=== PATIENT | male | born 1960 | race Caucasian/White ===

== ENCOUNTER 2017-04-23 18:57 | Inpatient (IN) | payer MEDICAID ==
[~2017-04-23] VITALS: Ht 160 cm; Wt 65.8 kg
[2017-04-23 19:06] VITALS: BP 129/83
--- NOTE | 2017-04-23 19:20 | NUR ---
LABS ORDERED. URINE COLLECTED. EKG DONE. PT TRANSPORTED TO XRAY VIA W/C IN STABLE CONDITION.
--- NOTE | 2017-04-23 19:33 | NUR ---
PT RETURNED TO LOBBY AFTER XRAY VIA W/C IN STABLE CONDITION.
[2017-04-23 19:58] LABS: BARBITURATE, URINE NEG. ng/ml (NEG <=200); BENZODIAZEPINE, URINE NEG. ng/mL (NEG <=200); CANNABINOID, URINE NEG. ng/mL (NEG <=50); COCAINE, URINE NEG. ng/mL (NEG <=300); OPIATE, URINE NEG. ng/mL (NEG <=2000); PHENCYCLIDINE SCREEN,URINE NEG. ng/mL (NEG <=25)
--- NOTE | 2017-04-23 20:00 | NUR ---
Pt brought in by son for chest pain. Pt statse pressure chest pain 4/10 non radiating. 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 VSS. 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 Last alcoholic drink was this evening before Pt came to ED. Pt son states that Pt is suffering from peranoid delusions more frequently. ERMD aware. Continue to monitor.
[2017-04-23 20:05] LABS: ANION GAP 20.9 (8-16); CARBON DIOXIDE 20.1 mmol/L (21-32); CREATININE 0.9 mg/dL (0.7-1.3)
[2017-04-23 20:12] LABS: ALBUMIN 3.9 g/dL (3.4-5.0)
[2017-04-23 20:26] LABS: BILIRUBIN,URINE NEGATIVE (NEGATIVE); BLOOD, URINE TRACE-L (NEGATIVE); COLOR,URINE YELLOW (YELLOW); LEUKOCYTE ESTERASE ,URINE TRACE (NEGATIVE); NITRITE, URINE NEGATIVE (NEGATIVE); PH,URINE 5.5 (5.0-9.0); UGLUCOSE NEGATIVE (NEGATIVE)
[2017-04-23 20:28] LABS: APPEARANCE,URINE HAZY (CLEAR)
--- NOTE | 2017-04-23 20:30 | NUR ---
RECEIVED FROM ER PER ROGER AWAKE AND ALERT. NO SOB. PT. ACCOMPANIED BY SON. PT. DX. OF CHEST PAIN WITH METH USE AND ALCOHOL INTAKE. PARANOID DEMEANOR AT THIS TIME. STATING THAT A PERSON IS RUNNING AFTER HIM. PT. INSISTED TO HAVE WINDOW CURTAIN CLOSED THOROUGHLY BECAUSE SOMEONE IS AFTER HIM. CALL LIGHT WITH IN REACH. WOLOF SPEAKING . SON ABLE TO ANSWER ALL PERTINENT ADMISSION QUESTIONS FOR FATHER WHO SPEAKS VERY WELL PANAMANIAN. PT. REFUSED TO BE TOUCHED AT THIS TIME AND REFUSED TO BE TALKED TO .
[2017-04-23 21:00] LABS: RBC,URINE 0-5 (RARE) /HPF (0-5); WBC,URINE 0-5 (RARE) /HPF (0-5)
[2017-04-23] MEDS ORDERED: MULTIVITAMIN-12 10 ML, THIAMINE 100 MG, MAGNESIUM SULFATE 50% 2,000 MG, FOLIC ACID 5 MG... IV ONE ×5 (21:30)
[2017-04-23] MEDS ORDERED: MAGNESIUM SULFATE 50% 1000 MG/2 ML VIAL IV ONE ×2 (21:40→21:45)
[2017-04-23] MEDS ORDERED: THIAMINE 200 MG/2 ML VIAL ONE (21:45)
[2017-04-23] MEDS ORDERED: MULTIVITAMIN-12 10 ML VIAL IV ONE (21:45)
[2017-04-23] MEDS ORDERED: FOLIC ACID 5 MG/ML SYR ONE (21:45)
[2017-04-23] MEDS ORDERED: HYDROcodone/APAP 7.5/325 MG 1 TAB PO PRN (21:55)
[2017-04-23] MEDS ORDERED: NACL 0.9% 1,000 ML IV SCH (21:55)
[2017-04-23] MEDS ORDERED: ACETAMINOPHEN 325 MG TAB PO PRN (21:55)
[2017-04-23] MEDS ORDERED: ONDANSETRON 4 MG/2 ML VIAL IVP PRN (21:55)
--- NOTE | 2017-04-23 22:16 | NUR ---
Pt in bed and resting. Pain remains the same. Pt vss. Awaiting tansfer.
[2017-04-23 22:29] LABS: BASOPHILS # (AUTO) 0.1 K/uL (0.00-0.22); BASOPHILS % (AUTO) 1.5 % (0.0-2.0); EOSINOPHILS # (AUTO) 0.1 K/uL (0-0.4); HEMATOCRIT 38.9 % (36-52); HEMOGLOBIN 13.2 g/dL (12.0-18.0); LYMPHOCYTES % (AUTO) 11.4 % (20.5-51.1); MEAN CORPUSCULAR HEMOGLOBIN 33 pg (27-31); MEAN CORPUSCULAR HGB CONC 34 g/dL (33-37); MEAN CORPUSCULAR VOLUME 97 fL (80-94); MONOCYTES # (AUTO) 0.7 K/uL (0.8-1.0); MONOCYTES % (AUTO) 7.6 % (1.7-9.3); NEUTROPHILS # (AUTO) 6.9 K/uL (1.8-7.7); NEUTROPHILS % (AUTO) 78.5 % (42.2-75.2); PLATELET COUNT (AUTO) 180 K/uL (140-450); RED CELL DISTRIBUTION WIDTH 12.6 % (11.6-13.7); WHITE BLOOD COUNT (AUTO) 8.8 K/uL (4.8-10.8)
--- NOTE | 2017-04-23 22:30 | NUR ---
Chirag Law RN left to floor, admitt Pt to room 111B for observation. Family aware and son at pt's side.
--- NOTE | 2017-04-23 22:35 | NUR ---
Report given to workgroup leader. Pt care transfered.
[2017-04-23 22:45] LABS: PROTHROMBIN TIME 10.9 secs (10.8-13.4)
[2017-04-23 22:52] LABS: CHOL/HDL RATIO 2.8 (1-4.5); FREE T4 (FREE THYROXINE) 1.15 ng/dL (0.76-1.46); MAGNESIUM 2.2 mg/dL (1.8-2.4); PHOSPHORUS 3.2 mg/dL (2.5-4.9); THYROID STIMULATING HORMONE 1.5 uIU/mL (0.34-3.74)
[2017-04-23] MEDS ORDERED: LORazepam 2 MG/ML VIAL IVP PRN (23:15)
[2017-04-23] MEDS ORDERED: NITROGLYCERIN 0.4 MG TAB SL PRN (23:15)
[2017-04-23 23:30] VITALS: BP 149/88
--- NOTE | 2017-04-24 01:04 | NUR ---
ATIVAN 2 MG IVP ORDERED MEDICATED RT PT. VERY RESTLESS. PT. SEEN TRYING TO CLIMB THE WALL AND STATED THAT SOMEBODY IN THE OTHER BED IS TRYING TO GET HIM. BED ALARM ON.
[2017-04-24 04:21] VITALS: BP 124/68
[2017-04-24] MEDS: LORazepam 1 MG TAB PO SCH ×2 (05:12→12:33)
--- NOTE | 2017-04-24 05:16 | NUR ---
BEEN SLEEPING WELL POST ATIVAN IVP MEDICATION GIVEN EARLIER. PT. WAKES UP WHEN AWAKENED AT THIS TIME. ABLE TO SWALLOW PILL WELL. WENT BACK TO SLEEP.
--- NOTE | 2017-04-24 07:30 | NUR ---
RECEIVED PT REPORT FROM CAPITAL EQUIPMENT SPECIALIST RN. PT IS SLEEPING, AROUSED TO NAME, ORIENTED X2 TO NAME AND PLACE. NO S/S OF ACUTE DISTRESS AT THIS TIME. DENIES PAIN AT THIS TIME. VITAL SIGNS TAKEN AND DOCUMENTED. SAFETY PRECAUTIONS MET. WILL CONTINUE TO MONITOR.
[2017-04-24 08:00] VITALS: BP 117/68
[2017-04-24] MEDS ORDERED: NITROFURANTOIN 100 MG CAP PO SCH (08:00)
--- NOTE | 2017-04-24 08:16 | NUR ---
WOKE PT UP TO TAKE MEDICATION. NO S/S OF ACUTE DISTRESS NOTED. IV NOTED TO THE RIGHT ARM, 20G, INFUSING WELL.
--- NOTE | 2017-04-24 08:42 | NUR ---
PATIENT HAS BEEN SCREENED AND CATEGORIZED LOW RISK. PATIENT WILL BE SEEN WITHIN 7 DAYS OF ADMISSION. 04/30/[address]
[2017-04-24] MEDS ORDERED: THIAMINE 100 MG TAB PO SCH (09:00)
[2017-04-24] MEDS ORDERED: METOPROLOL 25 MG TAB PO SCH (09:00)
[2017-04-24] MEDS ORDERED: MULTIVITAMIN 1 TAB PO SCH (09:00)
[2017-04-24] MEDS ORDERED: DOCUSATE SODIUM 100 MG GELCAP PO SCH (09:00)
[2017-04-24] MEDS ORDERED: LISINOPRIL 5 MG TAB PO SCH (09:00)
[2017-04-24] MEDS ORDERED: FOLIC ACID 1 MG TAB PO SCH (09:00)
[2017-04-24] MEDS ORDERED: ASPIRIN 81 MG TAB.CHEW PO SCH (09:00)
[2017-04-24 12:00] VITALS: BP 113/62
--- NOTE | 2017-04-24 12:30 | NUR ---
WOKE PT UP FOR MEDICATION AND LUNCH. PT ATE WELL, NO S/S OF DISTRESS NOTED.
[2017-04-24] MEDS ORDERED: ASCO1CAP75 PO (15:45)
[2017-04-24] MEDS ORDERED: SULF-58 PO (15:45)
[2017-04-24 16:00] VITALS: BP 140/76
--- NOTE | 2017-04-24 16:50 | NUR ---
PT DISCHARGED PER MD ORDER. DISCHARGE INSTRUCTION AND MEDICATIONS TEACHING PROVIDED TO PT AND PT'S SON. BOTH VERBALIZED UNDERSTANDING. MADE THEM AWARE THAT THEY CAN MAKE AN APPOINTMENT ON WEDNESDAY WITH DR DUSTIN GILL. PHONE NUMBER PROVIDED. PT AND HIS SON VERBALIZED UNDERSTANDING. IV CATH DC'ED, TIP INTACT, PRESSURE APPLIED. NO S/S OF ACUTE DISTRESS NOTED. PT DENIES PAIN AND NAUSEA AT THIS TIME. PT LEFT IN STABLE CONDITION AND WITH ALL HIS BELONGINGS.
[2017-04-24] MEDS ORDERED: ATORVASTATIN 20 MG TAB PO SCH (21:00)
== END 2017-04-24 16:50 | disposition home or self-care (01) | DRG 775 ==
LOC: MED 18:57 → MTU 22:03
PROVIDERS: ADMIT Family Medicine Sports Medicine; ATTEND Family Medicine Sports Medicine
DX: F10.229 Alcohol dependence with intoxication, unspecified (principal); N17.0 Acute kidney failure with tubular necrosis; G92 Toxic encephalopathy; M94.0 Chondrocostal junction syndrome [Tietze]; Y90.5 Blood alcohol level of 100-119 mg/100 ml; I10 Essential (primary) hypertension; R80.9 Proteinuria, unspecified; N39.0 Urinary tract infection, site not specified; F15.10 Other stimulant abuse, uncomplicated; F19.10 Other psychoactive substance abuse, uncomplicated; J44.9 Chronic obstructive pulmonary disease, unspecified; E11.9 Type 2 diabetes mellitus without complications
CPT/HCPCS: 36415; 71046; 80053; 80305; 81001; 82009; 82140; 82150; 83036; 83605; 83690; 83735; 84100; 84439; 84443; 84484; 85025; 85379; 85610; 85730; 87081; 93005; 96365; 99285; A9153; G0482; J2060; J3411; J3475; J3490; J7030